=== PATIENT | male | born 1980 | race Caucasian/White ===

== ENCOUNTER 2022-06-25 18:45 | Emergency (ER) | payer OTHER, SELFPAY ==
[2022-06-25 18:52] VITALS: BP 154/76; PULSE 101; RESP 14; TEMP 36.6; O2SAT 95; BMI 30.8
--- NOTE | 2022-06-25 20:12 | ED.GENADULT ---
HPI - General Adult General Date Seen: 06/25/22 Chief complaint: Laceration/Wound Stated complaint: Left finger lac Time Seen by Provider: 06/25/22 19:45 Source: patient Limitations: no limitations History of Present Illness HPI narrative: 41-year-old male presents with a laceration to his left middle finger. 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 He was hammering metal when the hammer slipped and his finger caught the edge of a piece of sheet metal. He sustained a laceration over the middle finger PIP joint. Eating was controlled. His last tetanus was 9 years ago. No other injuries. No illness. Related Data Home Medications Medication Instructions Recorded Confirmed No Known Home Medications 06/25/22 06/25/22 Allergies Allergy/AdvReac Type Severity Reaction Status Date / Time septra Allergy Uncoded 06/25/22 19:02 Review of Systems Narrative: No other illness. No drug allergies. Exam Narrative: Exam Narrative: Left hand is examined. There is no evidence of trauma except for a 1.5 cm laceration diagonally across the extensor surface of the middle finger PIP joint. He has full strength and sensation and motion in that finger. Palpation over the finger is nontender. I discussed options for management with the patient. He elects to undergo suturing of this laceration after that discussion. Const: Vital Signs, click to edit/add: Vital Signs - 24 hr 06/25/22 18:52 Temperature 97.9 F Pulse Rate [Right Pulse Oximeter] 101 H Respiratory Rate 14 Blood Pressure [Ri ght Upper Arm] 154/76 H Pulse Oximetry 95 Documenting provider has reviewed patient's vital signs: yes Course Course Hospital Course: 1% lidocaine with epinephrine is infiltrated along the wound edges. He gets good anesthesia with this. Wound is vigorously irrigated with normal saline. Wound is then inspected. There does not appear to be any involvement of the extensor tendon in the laceration. Five Ethilon 4-0 sutures are placed to approximate the wound edges. Wound care instructions are given in detail. Vital Signs Vital signs: Initial Vital Signs Temperature 97.9 F 06/25/22 18:52 Temperature Source Temporal Artery Scan 06/25/22 18:52 Pulse Rate 101 H 06/25/22 18:52 Respiratory Rate 14 06/25/22 18:52 Blood Pressure 154/76 H 06/25/22 18:52 Blood Pressure Mean 102 07/31/22 18:52 Blood Pressure Position Sitting 06/25/22 18:52 Pulse Oximetry 95 06/25/22 18:52 Oxygen Delivery Method 06/25/22 18:52 Vital Signs Temperature 97.9 F 06/25/22 18:52 Pulse Rate 101 H 06/25/22 18:52 Respiratory Rate 14 06/25/22 18:52 Blood Pressure 154/76 H 06/25/22 18:52 Pulse Oximetry 95 06/25/22 18:52 Temperature 97.9 F 06/25/22 18:52 Pulse Rate 101 H 06/25/22 18:52 Respiratory Rate 14 06/25/22 18:52 Blood Pressure 154/76 H 06/25/22 18:52 Pulse Oximetry 95 06/25/22 18:52 Discharge Plan Discharge Clinical Impression: Finger laceration Patient Disposition: Home, Self-Care Additional Instructions: Keep your finger laceration covered with an antibiotic ointment and a Band-Aid. It may help to put a piece the tape over the Band-Aid to keep her finger straight. It would be best to avoid flexing ear finger at that joint until it is healed and your sutures out in about 10 days. You may get her finger wet in clean water such as in the shower or washing hands. Remove the Band-Aid, gets open water on your laceration, gently pat dry and immediately recover with a Band-Aid and antibiotic ointment. The sutures should be taken out in 10 days. Watch for signs of infection, increasing redness, swelling, pain, drainage from the wound. If these problems developed you should see your doctor. Your tetanus shot was updated today Prescriptions: No Action No Known Home Medications 0RF Stand Alone Forms: MyHealth Info Instructions
== END 2022-06-25 20:54 | disposition home or self-care (01) ==
LOC: ED 20:40
PROVIDERS: Emergency Provider Family Medicine
DX: S61.213A Laceration without foreign body of left middle finger without damage to nail, initial encounter (principal); W26.8XXA Contact with other sharp object(s), not elsewhere classified, initial encounter; Y93.89 Activity, other specified; Y92.9 Unspecified place or not applicable
CPT/HCPCS: 12001; 90471; 90714; 99283